=== PATIENT | male | born 1945 | race Caucasian/White ===

== ENCOUNTER 2018-10-20 12:42 | Inpatient (IN) | payer OTHER ==
[2018-10-20 14:05] LABS: Protime INR 1.46
[2018-10-20 14:17] LABS: Absolute Lymphocytes (CBC) 0.3 K/uL (0.7-4.9); Absolute Monocytes 0.9 K/uL (0.1-1.3); Absolute Neutrophil 12.8 K/uL (1.8-8.0); Hematocrit 29.2 % (39.6-49.0); Lymphocytes % 2.2 % (15.3-44.8); MPV 6.8 fL (7.6-11.3); Monocytes % 6.3 % (3.3-12.3); RBC Red Blood Cell Count 3.13 M/uL (4.33-5.43)
[2018-10-20 14:19] LABS: ALT/SGPT 23 U/L (12-78); AST/SGOT 16 U/L (15-37); Albumin 2.2 g/dL (3.4-5.0); Alkaline Phosphatase 111 U/L (45-117); BUN Blood Urea Nitrogen 26 mg/dL (7-18); Bicarbonate 39 mmol/L (21-32); Bilirubin Direct 0.4 mg/dL (0-0.2); Bilirubin Total 0.7 mg/dL (0.2-1.0); Glucose Level 194 mg/dL (74-106); Lipase 30 U/L (73-393); Magnesium 1.8 mg/dL (1.8-2.4); NT PRO-BNP 4451 pg/mL (<450); Potassium 3.5 mmol/L (3.5-5.1); Protein, Total 7.3 g/dL (6.4-8.2); Sodium Level 137 mmol/L (136-145); Troponin (Emerg Dept Use Only) < 0.02 ng/mL (0.0-0.045)
[2018-10-20] MEDS ORDERED: IPRATROPIUM BROM 0.5MG/2.5ML ONE (14:19)
[2018-10-20] MEDS ORDERED: METHYLPREDNISOLONE 125 MG INJ ONE (14:19)
[2018-10-20] MEDS ORDERED: FAMOTIDINE 20 MG/2 ML VIAL IV ONE (14:20)
[2018-10-20] MEDS ORDERED: LEVALBUTEROL 1.25 MG/3 ML NEB ONE (14:20)
[2018-10-20] MEDS ORDERED: NA CHLORIDE 0.9% 1,000 ML ONE (14:20)
[2018-10-20] MEDS ORDERED: PIPER/TAZO/NS 3.375gm 3.375 GM/100 ML BAG ONE (14:20)
--- NOTE | 2018-10-20 14:45 | EKG ---
Test Date: 2018-10-20 Test Time: 13:17:37 Sas Sql Developer: ISABELA MEASUREMENT RESULTS: Intervals: Rate: 107 MD: QRSD: 78 QT: 478 QTc: 638 Mills: P: MD: QRS: 8 T: 250 INTERPRETIVE STATEMENTS: Atrial fibrillation with rapid ventricular response Nonspecific ST and T wave abnormality, probably digitalis effect Abnormal ECG No previous ECG available for comparison Electronically Signed On 10-20-18 14:44:10 CLARK DRIVER by Varinder Romero
--- NOTE | 2018-10-20 14:53 | RAD REPORT ---
EXAM DESCRIPTION: Deanna Single View10/20/2018 2:44 pm CLINICAL HISTORY: Cough COMPARISON: none FINDINGS: Right lobectomy. Right base is hazy. Prominent bilateral reticulonodular lung opacities. The heart is mildly enlarged IMPRESSION: Right lobectomy Prominent bilateral reticulonodular lung opacities may indicate an atypical pneumonia or be chronic Right base is hazy. This may be a normal postsurgical change. Infiltrate or mass has a similar appear ance. CT chest recommended
--- NOTE | 2018-10-20 15:06 | EDPHYS ---
Physician Documentation [facility] Name: Junaid Horvath Age: 73 yrs Sex: Male : 1945 Arrival Date: 10/20/2018 Time: 12:48 Bed 28 Private MD: out of town, doctor ED Physician Jeremiah Haynes HPI: 10/20 13:53 This 73 yrs old Male presents to ER via Wheelchair with complaints of theo Breathing Difficulty. 13:53 The patient has shortness of breath at rest, with light activity. Onset: The theo symptoms/episode began/occurred 2 day(s) ago. Duration: The symptoms are chronic. The patient's shortness of breath is aggravated by coughing, exertion, walking, is alleviated by sitting up, application of supplemental oxygen. Associated signs and symptoms: Pertinent positives: non-productive cough. Severity of symptoms: At their worst the symptoms were mild moderate in the emergency department the symptoms are unchanged. The patient has not experienced similar symptoms in the past. Historical: - Allergies: 13:20 Morphine; ph - PMHx: 13:20 COPD; ph - PSHx: 13:20 R lobectomy; ph - Immunization history:: Adult Immunizations unknown. - Social history:: Smoking status: Patient/guardian denies using tobacco. - Ebola Screening: : No symptoms or risks identified at this time. - Family history:: not pertinent. ROS: 13:53 Constitutional: Negative for fever, chills, and weight loss, Eyes: Negative for injury, theo pain, redness, and discharge, ENT: Negative for injury, pain, and discharge, Neck: Negative for injury, pain, and swelling, Cardiovascular: Negative for chest pain, palpitations, and edema, Abdomen/GI: Negative for abdominal pain, nausea, vomiting, diarrhea, and constipation, Back: Negative for injury and pain, : Negative for injury, bleeding, discharge, and swelling, MS/Extremity: Negative for injury and deformity, Skin: Negative for injury, rash, and discoloration, Neuro: Negative for headache, weakness, numbness, tingling, and seizure, Psych: Negative for depression, anxiety, suicide ideation, homicidal ideation, and hallucinations, Allergy/Immunology: Negative for hives, rash, and allergies, Endocrine: Negative for neck swelling, polydipsia, polyuria, polyphagia, and marked weight changes, Hematologic/Lymphatic: Negative for swollen nodes, abnormal bleeding, and unusual bruising. 13:53 Respiratory: Positive for cough, shortness of breath, wheezing, expiratory. Exam: 13:53 Constitutional: This is a well developed, well nourished patient who is awake, alert, theo and in no acute distress. Head/Face: Normocephalic, atraumatic. Eyes: Pupils equal round and reactive to light, extra-ocular motions intact. Lids and lashes normal. Conjunctiva and sclera are non-icteric and not injected. Cornea within normal limits. Periorbital areas with no swelling, redness, or edema. ENT: Nares patent. No nasal discharge, no septal abnormalities noted. Tympanic membranes are normal and external auditory canals are clear. Oropharynx with no redness, swelling, or masses, exudates, or evidence of obstruction, uvula midline. Mucous membranes moist. Neck: Trachea midline, no thyromegaly or masses palpated, and no cervical lymphadenopathy. Supple, full range of motion without nuchal rigidity, or vertebral point tenderness. No Meningismus. Chest/axilla: Normal chest wall appearance and motion. Nontender with no deformity. No lesions are appreciated. Cardiovascular: Regular rate and rhythm with a normal S1 and S2. No gallops, murmurs, or rubs. Normal PMI, no JVD. No pulse deficits. Abdomen/GI: Soft, non-tender, with normal bowel sounds. No distension or tympany. No guarding or rebound. No evidence of tenderness throughout. Back: No spinal tenderness. No costovertebral tenderness. Full range of motion. Male : Normal genitalia with no discharge or lesions. Skin: Warm, dry with normal turgor. Normal color with no rashes, no lesions, and no evidence of cellulitis. MS/ Extremity: Pulses equal, no cyanosis. Neurovascular intact. Full, normal range of motion. Neuro: Awake and alert, GCS 15, oriented to person, place, time, and situation. Cranial nerves II-XII grossly intact. Motor strength 5/5 in all extremities. Sensory grossly intact. Cerebellar exam normal. Normal gait. Psych: Awake, alert, with orientation to person, place and time. Behavior, mood, and affect are within normal limits. 13:53 Respiratory: mild respiratory distress is noted, Respirations: labored breathing, that is mild, decreased bs right side. Vital Signs: 13:18 BP 149 / 125; Pulse 115; Resp 32; Pulse Ox 95% on 2 lpm NC; Weight 81.65 kg; Height 6 ph ft. 1 in. (185.42 cm); 13:24 Temp 97.8(O); tl3 13:55 BP 128 / 67; Pulse 121; Resp 28; Pulse Ox 98% on 3 lpm NC; tl3 15:12 BP 151 / 67; Pulse 101; Resp 28; Pulse Ox 100% on 2 lpm NC; tl3 17:49 BP 138 / 98; Pulse 88; Resp 26; Pulse Ox 100% ; tl3 13:18 Body Mass Index 23.75 (81.65 kg, 185.42 cm) ph MDM: 13:12 Patient medically screened. [facility] 13:57 Data reviewed: vital signs, nurses notes, lab test result(s), EKG, radiologic studies, [facility] CT scan, plain films. 10/20 13:15 Order name: Basic Metabolic Panel [facility] 10/20 13:15 Order name: CBC with Diff [facility] 10/20 13:15 Order name: LFT's [facility] 10/20 13:15 Order name: Magnesium [facility] 10/20 13:15 Order name: NT PRO-BNP [facility] 10/20 13:15 Order name: PT-INR; Complete Time: 14:19 [facility] 10/20 13:15 Order name: Troponin (emerg Dept Use Only); Complete Time: 14:51 [facility] 10/20 13:15 Order name: Lipase; Complete Time: 14:51 [facility] 10/20 13:15 Order name: Blood Culture Adult (2) [facility] 10/20 13:15 Order name: Procalcitonin; Complete Time: 14:55 [facility] 10/20 13:15 Order name: Urine Culture [facility] 10/20 13:15 Order name: Type And Screen [facility] 10/20 13:16 Order name: Basic Metabolic Panel; Complete Time: 14:51 [facility] 10/20 13:16 Order name: CBC with Automated Diff [facility] 10/20 13:15 Order name: XRAY Chest (1 view); Complete Time: 14:55 [facility] 10/20 13:16 Order name: Liver (Hepatic) Function; Complete Time: 14:51 [facility] 10/20 13:16 Order name: Magnesium; Complete Time: 14:51 [facility] 10/20 13:16 Order name: NT PRO-BNP; Complete Time: 14:51 [facility] 10/20 14:28 Order name: CBC Smear Scan [facility] 10/20 14:58 Order name: CT Chest For PE Angio [facility] 10/20 17:12 Order name: ABO/RH no charge [facility] 10/20 17:53 Order name: Urine Dipstick--Ancillary (enter results) 10/20 18:28 Order name: Urine Dipstick-Ancillary [facility] 10/20 13:15 Order name: EKG; Complete Time: 13:16 [facility] 10/20 13:15 Order name: Cardiac monitoring; Complete Time: 13:24 [facility] 10/20 13:15 Order name: EKG - Nurse/Tech; Complete Time: 13:24 [facility] 10/20 13:15 Order name: IV Saline Lock; Complete Time: 13:54 [facility] 10/20 13:15 Order name: Labs collected and sent; Complete Time: 13:54 [facility] 10/20 13:15 Order name: O2 Per Protocol; Complete Time: 13:54 [facility] 10/20 13:15 Order name: O2 Sat Monitoring; Complete Time: 13:55 [facility] 10/20 13:15 Order name: Urine Dipstick-Ancillary (obtain specimen); Complete Time: 17:44 [facility] Administered Medications: 14:40 Drug: Zosyn 3.375 grams Route: IVPB; Infused Over: 60 mins; Site: right upper arm; tl3 Delivery: Primary tubing; 16:00 Follow up: IV Status: Completed infusion; IV Intake: 100ml tl3 14:40 Drug: Pepcid 20 mg Route: IVP; Site: right upper arm; tl3 17:43 Follow up: Response: No adverse reaction tl3 14:40 Drug: SOLU-Medrol 125 mg Route: IVP; Site: right upper arm; tl3 17:43 Follow up: Response: No adverse reaction tl3 14:40 Drug: Xopenex 3.75 mg Route: Inhalation; tl3 14:40 Drug: AtroVENT Aerosol 0.5 mg Route: Inhalation; tl3 14:42 Drug: NS 0.9% 1000 ml Route: IV; Rate: 125 ml/hr; Site: right upper arm; tl3 17:42 Follow up: IV Status: Infusion continued upon admission; IV Intake: 500ml tl3 17:36 Drug: Zithromax 500 mg Route: IVPB; Infused Over: 1 hrs; Site: right antecubital; tl3 17:36 Drug: Mucomyst - Acetylcysteine 600 mg Route: PO; tl3 17:42 Follow up: Response: No adverse reaction tl3 Disposition: 10/20/18 15:05 Hospitalization ordered by Mariluz Allen for Inpatient Admission. Preliminary diagnosis are Dyspnea, Chronic obstructive pulmonary disease with (acute) exacerbation, Anemia, unspecified, Atrial fibrillation and flutter, Hypoxemia, Pneumonia due to other specified bacteria. - Bed requested for Telemetry/MedSurg (Inpatient). - Status is Inpatient Admission. tl3 - Condition is Fair. - Problem is new. - Symptoms have improved. UTI on Admission? No Signatures: Dispatcher [employer] EDMS Jeremiah Haynes MD MD cha Hall, Patricia RN RN Hilaria Redmond RN RN df Lowrey, Tammy, RN RN tl3 Corrections: (The following items were deleted from the chart) 17:16 15:05 Hospitalization Ordered by Mariluz Allen MD for Inpatient Admission. Preliminary df diagnosis is Dyspnea; Chronic obstructive pulmonary disease with (acute) exacerbation; Anemia, unspecified; Atrial fibrillation and flutter; Hypoxemia; Pneumonia due to other specified bacteria. Bed requested for Telemetry/MedSurg (Inpatient). Status is Inpatient Admission. Condition is Fair. Problem is new. Symptoms have improved. UTI on Admission? No. theo 18:33 17:16 10/20/2018 15:05 Hospitalization Ordered by Mariluz Allen MD for Inpatient tl3 Admission. Preliminary diagnosis is Dyspnea; Chronic obstructive pulmonary disease with (acute) exacerbation; Anemia, unspecified; Atrial fibrillation and flutter; Hypoxemia; Pneumonia due to other specified bacteria. Bed requested for Telemetry/MedSurg (Inpatient). Status is Inpatient Admission. Condition is Fair. Problem is new. Symptoms have improved. UTI on Admission? No. df
--- NOTE | 2018-10-20 15:06 | ER ---
Nurse's Notes [facility] Name: Junaid Horvath Age: 73 yrs Sex: Male : 1945 Arrival Date: 10/20/2018 Time: 12:48 Bed 28 Private MD: out of town, doctor Diagnosis: Dyspnea;Chronic obstructive pulmonary disease with (acute) exacerbation;Anemia, unspecified;Atrial fibrillation and flutter;Hypoxemia;Pneumonia due to other specified bacteria Presentation: 10/20 13:16 Presenting complaint: Patient states: Hx of COPD, feeling more SOB than normal, seen at [facility] last week and sent home w/ Levaquin and steroids, on home o2 \T\ 2 L upon arrival to ED. Transition of care: patient was not received from another setting of care. Onset of symptoms was October 20, 2018. Risk Assessment: Do you want to hurt yourself or someone else? Patient reports no desire to harm self or others. Initial Sepsis Screen: Does the patient meet any 2 criteria? RR > 20 per min. HR > 90 bpm. Yes Does the patient have a suspected source of infection? Yes: Productive cough/pneumonia. Care prior to arrival: None. 13:16 Method Of Arrival: Wheelchair 13:16 Acuity: KARINA 2 ph Triage Assessment: 17:53 General: Appears distressed, uncomfortable. Respiratory: Reports shortness of breath tl3 air hunger Onset: The symptoms/episode began/occurred gradually, the patient has severe shortness of breath. Historical: - Allergies: 13:20 Morphine; ph - PMHx: 13:20 COPD; - PSHx: 13:20 R lobectomy; ph - Immunization history:: Adult Immunizations unknown. - Social history:: Smoking status: Patient/guardian denies using tobacco. - Ebola Screening: : No symptoms or risks identified at this time. - Family history:: not pertinent. Screenin:55 Abuse screen: Denies threats or abuse. Nutritional screening: No deficits noted. tl3 Tuberculosis screening: No symptoms or risk factors identified. Fall Risk None identified. Assessment: 13:55 General: Appears uncomfortable, well groomed, well developed, well nourished, Behavior tl3 is calm, cooperative, appropriate for age. Pain: Denies pain. Neuro: Level of Consciousness is awake, alert, obeys commands, Oriented to person, place, time, situation, Appropriate for age. Cardiovascular: Rhythm is sinus tachycardia. Respiratory: Airway is patent Respiratory effort is even, labored, shallow, weak, Breath sounds are diminished in right upper lobe, right middle lobe, right lower lobe, right posterior upper lobe, right posterior middle lobe and right posterior lower lobe. GI: No signs and/or symptoms were reported involving the gastrointestinal system. : No signs and/or symptoms were reported regarding the genitourinary system. EENT: No signs and/or symptoms were reported regarding the EENT system. Derm: Skin is purple, from left AC down to hand, when IV was removed last week pt bled under his skin. 15:12 Reassessment: No changes from previously documented assessment. Patient and/or family tl3 updated on plan of care and expected duration. Pain level reassessed. Patient is alert, oriented x 3, equal unlabored respirations, skin warm/dry/pink. pt being taken to CT, Neb just finished pt states that he is breathing a little easier Patient states feeling better. 17:49 Reassessment: No changes from previously documented assessment. Patient and/or family tl3 updated on plan of care and expected duration. Pain level reassessed. Patient is alert, oriented x 3, equal unlabored respirations, skin warm/dry/pink. pt ambulated to RR without O2 and became winded, pale placed in wheelchair and returned to room, feeling better now, in NAD. 17:59 Reassessment: awaiting nurse to call back for report, called twice was on hold for a tl3 total of almost 15 minutes, nurse was in pts room and unable to come take report. Will call back ADRIANE. Vital Signs: 13:18 BP 149 / 125; Pulse 115; Resp 32; Pulse Ox 95% on 2 lpm NC; Weight 81.65 kg; Height 6 ph ft. 1 in. (185.42 cm); 13:24 Temp 97.8(O); tl3 13:55 BP 128 / 67; Pulse 121; Resp 28; Pulse Ox 98% on 3 lpm NC; tl3 15:12 BP 151 / 67; Pulse 101; Resp 28; Pulse Ox 100% on 2 lpm NC; tl3 17:49 BP 138 / 98; Pulse 88; Resp 26; Pulse Ox 100% ; tl3 13:18 Body Mass Index 23.75 (81.65 kg, 185.42 cm) ph ED Course: 12:48 Patient arrived in ED. mr 12:48 out of town, doctor is Private Physician. mr 13:12 Jeremiah Haynes MD is Attending Physician. theo 13:16 Maria Del Rosario Shafer, RN is Primary Nurse. tl3 13:18 Triage completed. ph 13:20 Arm band placed on. ph 13:25 EKG done, by satellite dish technician. reviewed by Jeremiah Haynes MD. sm3 13:55 Patient has correct armband on for positive identification. Placed in gown. Bed in low tl3 position. Call light in reach. Side rails up X2. Adult w/ patient. library monitor on. Pulse ox on. NIBP on. Warm blanket given. 13:55 No provider procedures requiring assistance completed. Inserted saline lock: 20 gauge tl3 in right upper arm, using aseptic technique. Blood collected. 14:02 Initial lab(s) drawn, by me, sent to lab. First set of blood cultures drawn by me. tl3 14:41 Second set of blood cultures drawn X-ray(s) taken. tl3 14:43 X-ray completed. Portable x-ray completed in exam room. Patient tolerated procedure jb2 well. 14:45 XRAY Chest (1 view) In Process Unspecified. EDMS 14:59 Mariluz Allen MD is Hospitalizing Provider. theo 15:[address] via stretcher. vm2 15:14 CT completed. Patient tolerated procedure well. Patient moved back from CT. vm2 15:17 CT Chest For PE Angio In Process Unspecified. EDMS 17:44 Basic Metabolic Panel Sent. tl3 17:44 CBC with Diff Sent. tl3 17:44 NT PRO-BNP Sent. tl3 17:44 Magnesium Sent. tl3 17:44 LFT's Sent. tl3 17:49 Patient admitted, IV remains in place. tl3 Administered Medications: 14:40 Drug: Zosyn 3.375 grams Route: IVPB; Infused Over: 60 mins; Site: right upper arm; tl3 Delivery: Primary tubing; 16:00 Follow up: IV Status: Completed infusion; IV Intake: 100ml tl3 14:40 Drug: Pepcid 20 mg Route: IVP; Site: right upper arm; tl3 17:43 Follow up: Response: No adverse reaction tl3 14:40 Drug: SOLU-Medrol 125 mg Route: IVP; Site: right upper arm; tl3 17:43 Follow up: Response: No adverse reaction tl3 14:40 Drug: Xopenex 3.75 mg Route: Inhalation; tl3 14:40 Drug: AtroVENT Aerosol 0.5 mg Route: Inhalation; tl3 14:42 Drug: NS 0.9% 1000 ml Route: IV; Rate: 125 ml/hr; Site: right upper arm; tl3 17:42 Follow up: IV Status: Infusion continued upon admission; IV Intake: 500ml tl3 17:36 Drug: Zithromax 500 mg Route: IVPB; Infused Over: 1 hrs; Site: right antecubital; tl3 17:36 Drug: Mucomyst - Acetylcysteine 600 mg Route: PO; tl3 17:42 Follow up: Response: No adverse reaction tl3 Intake: 16:00 IV: 100ml; Total: 100ml. tl3 17:42 IV: 500ml; Total: 600ml. tl3 Outcome: 15:05 Decision to Hospitalize by Provider. theo 17:53 Condition: stable tl3 17:53 Instructed on the need for admit, Demonstrated understanding of instructions. 17:54 Admitted to Med/surg accompanied by tech, via wheelchair, with oxygen, with chart. tl3 18:33 Patient left the ED. tl3 Signatures: Dispatcher [employer] EDJeremiah Fernando MD MD cha Rivera, Justine mr Zelaya Sagar jb2 Wanda Fitzpatrick RN RN Clotilde Hurtado 2 Maria Del Rosario Shafer RN RN tl3 Brittny Asif sm3 Corrections: (The following items were deleted from the chart) 15:14 13:55 BP 128 / 67; Pulse 121bpm; Resp 20bpm; Pulse Ox 98% 3 lpm Nasal Cannula; tl3 tl3
--- NOTE | 2018-10-20 15:35 | RAD REPORT ---
EXAM DESCRIPTION: CT - Chest For Pe Angio - 10/20/2018 3:17 pm CLINICAL HISTORY: Cough, COPD, shortness of breath COMPARISON: Chest films same date TECHNIQUE: Dynamically enhanced 3 mm thick images of the chest were obtained during administration o f approximately 150mL Isovue 370 IV contrast. Coronal and oblique MIP reconstruction images were gene rated and reviewed. Exam utilizes a protocol to evaluate the pulmonary arterial tree. All CT scans are performed using dose optimization technique as appropriate and may include automated exposure control or mA/KV adjustment according to patient size. FINDINGS: No pulmonary emboli are identified. The aorta as imaged shows no acute or suspicious finding. Cardiomegaly is present. No pericardial eff usion. No significant left upper lobe finding. There is patchy consolidation in the medial base of the left lower lobe. There is complete consolidation and some volume loss of the right lower lobe. Mucus or ot her soft tissue debris fills the right lower lobe bronchus. Similar material fills most of the right middle lobe bronchus. There is partial consolidation of the right middle lobe. Scattered interstitial and alveolar opacities are present in the right upper lobe. Right apical pleural thickening is prese nt. Trace amount of right pleural fluid is present. No pneumothorax. No pleural based mass. Nonspecific mediastinal and hilar lymph nodes are present. Largest retrocaval -pretracheal lymph node is 15 mm. Subcarinal lymphadenopathy is present 2.3 cm in size. No chest wall masses or abnormal axi llary lymphadenopathy. IMPRESSION: No pulmonary emboli identified. Consolidation in some volume loss involving the entire right lower lobe and significant portion of th e right middle lobe. There is consolidation in the medial base of the left lower lobe. Mucus, inflammatory debris or other soft tissue mass effect fills the right lower lobe bronchus and m uch of the right middle lobe bronchus. Nonspecific mediastinal lymphadenopathy. Cardiomegaly. Extensive bilateral pneumonia is the most likely etiology. Underlying malignant process is lesser in likelihood but not excluded. Continued close follow-up is needed.
[2018-10-20 16:01] LABS: Blood Morphology Comment NOTED (NOT SEEN); Platelet Estimate ADEQ; Urine White Blood Cell Casts OK
[2018-10-20 16:02] LABS: Basophilic Stippling 1+; Poikilocytosis SLIGHT
[2018-10-20 16:03] LABS: Stomatocytes 1+
[2018-10-20] MEDS ORDERED: AZITHROMYCIN 500 MG INJ IVPB ONE (17:20)
[2018-10-20] MEDS ORDERED: NA CHLORIDE 0.9% 250 ML ONE (17:21)
[2018-10-20] MEDS ORDERED: ACETYLCYST 6,000 MG/30 ML VIAL ONE (17:21)
[2018-10-20 18:28] LABS: Urine Blood NEGATIVE (NEG); Urine Glucose NEGATIVE (NEG); Urine Protein 1+ (NEG); Urine pH 5.5 (5.0-7.0)
[2018-10-20 19:11] VITALS: BMI 23.0
[2018-10-20] MEDS ORDERED: ONDANSETRON 4 MG/2 ML VIAL IV PRN (19:50)
[2018-10-20] MEDS ORDERED: POTASSIUM CL SA 10 MEQ TAB PO ONE (19:54)
[2018-10-20] MEDS ORDERED: MAGNESIUM SULFATE 1 gm IVPB 1 GM/100 ML BAG IV ONE (19:54)
[2018-10-20] MEDS ORDERED: GLUCAGON 1 MG/VIAL IM PRN ×2 (20:22→20:27)
[2018-10-20] MEDS ORDERED: D50W 25 GM/50 ML SYRINGE IV PRN ×2 (20:22→20:27)
[2018-10-20] MEDS ORDERED: INSULIN -REGULAR HUMAN 50 UNIT/0.5 ML ML IV SCH (21:00)
[2018-10-20] MEDS: INSULIN -REGULAR HUMAN 50 UNIT/0.5 ML ML SQ SCH (22:21)
[2018-10-21 01:19] LABS: Urine Appearance CLEAR; Urine Bilirubin NEGATIVE (NEG); Urine Blood NEGATIVE (NEG); Urine Color YELLOW; Urine Glucose 3+ (NEG); Urine Protein NEGATIVE (NEG); Urine Specific Gravity >=1.030 (1.005-1.030); Urine Urobilinogen 0.2 mg/dL (0.2-1.0)
[2018-10-21 01:26] LABS: Urine Microscopic Reflex NO UMIC
[2018-10-21] MEDS: IPRATROPIUM BROM 0.5MG/2.5ML NEB SCH ×4 (02:00→19:40)
[2018-10-21] MEDS: ALBUTEROL 2.5 MG/3 ML NEB SOL NEB SCH ×4 (02:00→19:40)
[2018-10-21 06:27] LABS: Absolute Lymphocytes (CBC) 0.2 K/uL (0.7-4.9); Absolute Monocytes 0.2 K/uL (0.1-1.3); Absolute Neutrophil 7.3 K/uL (1.8-8.0); Basophils % 0.1 % (0-1.3); Hematocrit 24.8 % (39.6-49.0); Lymphocytes % 2.7 % (15.3-44.8); MPV 6.9 fL (7.6-11.3); Monocytes % 2.8 % (3.3-12.3); RBC Red Blood Cell Count 2.68 M/uL (4.33-5.43)
[2018-10-21 06:31] LABS: Bilirubin Total 0.5 mg/dL (0.2-1.0); Magnesium 2.1 mg/dL (1.8-2.4); Potassium 3.9 mmol/L (3.5-5.1); Protein, Total 6.4 g/dL (6.4-8.2)
[2018-10-21] MEDS ORDERED: FUROSEMIDE 40 MG TABLET PO PRN (06:52)
[2018-10-21] MEDS ORDERED: ALBUMIN HUMAN 25% 100 ML IV ONE (06:55)
[2018-10-21] MEDS ORDERED: FUROSEMIDE 40 MG/4 ML VIAL IV ONE (06:55)
[2018-10-21] MEDS ORDERED: METHYLPREDNISOLONE 125 MG INJ IV ONE (06:58)
[2018-10-21] MEDS ORDERED: GLUCAGON 1 MG/VIAL IM PRN (07:01)
[2018-10-21] MEDS ORDERED: INSULIN 70/30 100 UNITS/ML SQ ONE (07:01)
[2018-10-21] MEDS ORDERED: D50W 25 GM/50 ML SYRINGE IV PRN (07:01)
[2018-10-21 07:53] LABS: Absolute Lymphocytes (CBC) 0.3 K/uL (0.7-4.9); Absolute Monocytes 0.3 K/uL (0.1-1.3); Absolute Neutrophil 9.5 K/uL (1.8-8.0); Lymphocytes % 2.5 % (15.3-44.8); MPV 7.1 fL (7.6-11.3); Monocytes % 3.1 % (3.3-12.3)
[2018-10-21] MEDS ORDERED: POTASSIUM CL SA 10 MEQ TAB PO ONE (08:00)
--- NOTE | 2018-10-21 08:41 | RAD REPORT ---
EXAM DESCRIPTION: RAD - Chest Single View - 10/21/2018 8:32 am CLINICAL HISTORY: pneumonia Chest pain. COMPARISON: Chest Single View dated 10/20/2018; Chest For Pe Angio dated 10/20/2018 FINDINGS: Portable technique limits examination quality. Postsurgical changes of a right lobectomy noted. Little overall change is seen in the appearance of t he lungs with basilar opacities, greater on the right, appearing similar. Heart size is mildly enlarg ed. No displaced fractures. IMPRESSION: Stable chest since 10/20/2018.
[2018-10-21] MEDS: INSULIN -REGULAR HUMAN 50 UNIT/0.5 ML ML SQ SCH ×4 (08:42→22:10)
[2018-10-21] MEDS: LIPASE/PROTEASE/AMYLASE CAP PO SCH ×3 (08:43→16:35)
[2018-10-21] MEDS: FERROUS SULFATE 325 MG TAB PO SCH ×3 (08:44→16:35)
[2018-10-21] MEDS: ALLOPURINOL 100 MG TAB PO SCH (08:44)
[2018-10-21] MEDS: PARoxetine HCl 10 MG TAB PO SCH (08:45)
[2018-10-21] MEDS: METOPROLOL XL 25 MG TAB PO SCH (08:45)
[2018-10-21] MEDS: ARFORMOTEROL TARTRATE 15 MCG/2 ML VIAL.NEB NEB SCH ×2 (08:53→19:40)
--- NOTE | 2018-10-21 08:54 | P.CNS ---
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 [facility] admitted with worsening dyspnea he is a former smoker quit a long time ago chest x-ray very abnormal he has atelectasis or a mass in the right lower lobe patient informs me that he is aware of this been coughing up some productive sputum patient is on Symbicort and Xarelto Allergies morphine Adverse Reaction (Verified 10/20/18 20:02) Itching/Hives/Rash Home Medications: Albuterol Neb [Proventil 0.083% Neb Soln] 3 ml IH Q4H PRN 10/21/18 Albuterol Sulfate [Proair Hfa] 90 mcg IH SEECOM PRN 10/21/18 Allopurinol 1 tab PO DAILY 10/21/18 Budesonide/Formoterol Fumarate [Symbicort 160-4.5 Mcg Inhaler] 2 puff IH BID Ferrous Sulfate [Iron] 1 tab PO TID 10/21/18 Furosemide [Lasix] 40 mg PO DAILY PRN 10/21/18 Insulin Aspart [Novolog] 12 units SQ TID 10/21/18 Insulin Glargine Human [Lantus*] 10 units SQ BEDTIME PRN 10/21/18 Lipase/Protease/Amylase [Kiley Dr 12,000 Units Capsule] 24,000 units PO SEECOM 10/21/18 Metoprolol Succinate [Toprol Xl*] 1 tab PO DAILY 10/21/18 PARoxetine HCl [Paroxetine HCl] 1 tab PO DAILY 10/21/18 Pravastatin Sodium 1 tab PO BEDTIME 10/21/18 Rivaroxaban [Xarelto*] 1 tab PO DAILY 10/21/18 Umeclidinium [place] [Incruse Ellipta] 1 puff IH DAILY 10/21/18 - Past Medical/Surgical History Diabetic: Yes -: HTN -: IDDM -: anemia -: COPD -: afib -: right lower lobectomy -: Gall bladder sx -: colon resection - Family History Mother Medical History: Diabetes - Social History Alcohol use: Yes CD- Drugs: No Caffeine use: Yes Place of Residence: Home Review of Systems General: Weakness Respiratory: Cough, Shortness of Breath Physical Examination Temp Pulse Resp BP Pulse Ox 96.1 F L 89 16 159/69 H 99 10/21/18 04:00 10/21/18 08:45 10/21/18 04:00 10/21/18 08:45 10/21/18 04:00 General: Alert, Mild distress HEENT: Atraumatic Neck: Supple Respiratory: Expiratory wheezes Cardiovascular: No edema, Normal S1 S2 Gastrointestinal: Normal bowel sounds, Soft and benign Musculoskeletal: No clubbing, No swelling Laboratory Data (last 24 hrs) 10/20/18 13:45: PT 17.0 H, INR 1.46 10/20/18 13:45: WBC 14.0 H, Hgb 9.2 L, Hct 29.2 L, Plt Count 274 10/20/18 13:45: Sodium 137, Potassium 3.5, BUN 26 H, Creatinine 1.11, Glucose 194 H, Magnesium 1.8, Total Bilirubin 0.7, AST 16, ALT 23, Alkaline Phosphatase 111, Lipase 30 L - Problems (1) Atelectasis of right lung Current Visit: Yes Status: Acute Plan: Patient is 73 years of age admitted with worsening dyspnea he has a history of COPD compliant with his medications this chest x-rays very abnormal patient appears to have volume loss on the right side with atelectasis of the right lower lobe will have to contact his [facility] pulmonary physician and obtain x-ray reports for a comparison as the patient informs me that he has had this problem before (2) COPD exacerbation Current Visit: Yes Status: Acute Plan: Continue with bronchodilators vital signs are stable I have added Sarah.
[2018-10-21] MEDS ORDERED: HOME MED 1 EA UNK (Umeclidinium Bromide [Incruse Ellipta] 1 PUFF) IH SCH (09:00)
[2018-10-21] MEDS ORDERED: ENOXAPARIN 40 MG/0.4 ML SQ SCH (09:00)
[2018-10-21] MEDS ORDERED: HOME MED 1 EA UNK (Budesonide/Formoterol Fumarate [Symbicort 160-4.5 Mcg Inhaler] 2 PUFF) IH SCH (09:00)
--- NOTE | 2018-10-21 09:09 | P.HP ---
Certification for Inpatient Patient admitted to: Inpatient With expected LOS: >2 Midnights Patient will require the following post-hospital care: None Practitioner: I am a practitioner with admitting privileges, knowledge of patient current condition, hospital course, and medical plan of care. Services: Services provided to patient in accordance with Admission requirements found in Title 42 Section 412.3 of the Code of Federal Regulations Patient History Date of Service: 10/20/18 Reason for admission: Shortness of breath History of Present Illness: Patient is a 73-year-old gentleman who came into the hospital with shortness of breath. In the emergency room patient had multiple diagnostic studies which revealed significant atelectasis in additional findings as mentioned below: There is patchy consolidation in the medial base of the left lower lobe. There is complete consolidation and some volume loss of the right lower lobe. There is mucus or other soft tissue debris that fills the right lower lobe bronchus. Similar material fills most of the right middle lobe bronchus. There is partial consolidation of the right middle lobe. Scattered interstitial and alveolar opacities are present in the right upper lobe. Right apical pleural thickening is present. Trace amount of right pleural fluid is present. No pneumothorax. No pleural based mass. Patient is not able to give me much history. He is actually going to [place] for most of his care. He did have some leukocytosis and anemia. Will need to monitor his labs closely. Monitor his respiratory status as well. Patient was admitted to the hospital for further evaluation. Allergies morphine Adverse Reaction (Verified 10/20/18 20:02) Itching/Hives/Rash Home Medications: Albuterol Neb [Proventil 0.083% Neb Soln] 3 ml IH Q4H PRN 10/21/18 Albuterol Sulfate [Proair Hfa] 90 mcg IH SEECOM PRN 10/21/18 Allopurinol 1 tab PO DAILY 10/21/18 Budesonide/Formoterol Fumarate [Symbicort 160-4.5 Mcg Inhaler] 2 puff IH BID Ferrous Sulfate [Iron] 1 tab PO TID 10/21/18 Furosemide [Lasix] 40 mg PO DAILY PRN 10/21/18 Insulin Aspart [Novolog] 12 units SQ TID 10/21/18 Insulin Glargine Human [Lantus*] 10 units SQ BEDTIME PRN 10/21/18 Lipase/Protease/Amylase [[place] Dr 12,000 Units Capsule] 24,000 units PO SEECOM 10/21/18 Metoprolol Succinate [Toprol Xl*] 1 tab PO DAILY 10/21/18 PARoxetine HCl [Paroxetine HCl] 1 tab PO DAILY 10/21/18 Pravastatin Sodium 1 tab PO BEDTIME 10/21/18 Rivaroxaban [Xarelto*] 1 tab PO DAILY 10/21/18 Umeclidinium [place] [Incruse Ellipta] 1 puff IH DAILY 10/21/18 - Past Medical/Surgical History Has patient received pneumonia vaccine in the past: Yes Diabetic: Yes -: HTN -: IDDM -: anemia -: COPD -: Atrial fibrillation -: Right lower lobectomy -: Cholecystectomy -: colon resection - Family History Mother Medical History: Diabetes - Social History Counseled patient to stop smoking for: less than 10 minutes Smoking therapy provided: No Alcohol use: Yes CD- Drugs: No Caffeine use: Yes Place of Residence: Home Review of Systems 10-point ROS is otherwise unremarkable Physical Examination - Vital Signs Temperature: 96.1 F Blood Pressure: 159/69 Pulse: 89 Respirations: 16 Pulse Ox (%): 99 - Physical Exam General: Alert, In no apparent distress, Oriented x3 HEENT: Atraumatic, PERRLA, Mucous membr. moist/pink, EOMI, Sclerae nonicteric Neck: Supple, 2+ carotid pulse no bruit, No LAD, Without JVD or thyroid abnormality Respiratory: Diminished, Expiratory wheezes, Rhonchi/gurgles Cardiovascular: Regular rate/rhythm, Normal S1 S2, Systolic murmur Gastrointestinal: Normal bowel sounds, Soft and benign, Non-distended, No tenderness Musculoskeletal: No clubbing, No swelling, No tenderness Integumentary: No rashes Neurological: Normal speech, Normal tone, Sensation intact, Cranial nerves 3-12 intact, Abnormal gait, Abnormal strength, Abnormal affect Lymphatics: No axilla or inguinal lymphadenopathy - Studies Laboratory Data (last 24 hrs) 10/20/18 13:45: PT 17.0 H, INR 1.46 10/20/18 13:45: WBC 14.0 H, Hgb 9.2 L, Hct 29.2 L, Plt Count 274 10/20/18 13:45: Sodium 137, Potassium 3.5, BUN 26 H, Creatinine 1.11, Glucose 194 H, Magnesium 1.8, Total Bilirubin 0.7, AST 16, ALT 23, Alkaline Phosphatase 111, Lipase 30 L Assessment & Plan - Problems (Diagnosis) (1) Lung consolidation due to pneumococcal pneumonia Current Visit: Yes Status: Acute (2) Atelectasis of right lung Current Visit: Yes Status: Acute (3) Hyperglycemia Current Visit: Yes Status: Acute (4) COPD exacerbation Current Visit: Yes Status: Acute (5) Atrial fibrillation Current Visit: Yes Status: Acute (6) Hypertension Current Visit: Yes Status: Acute Qualifiers: Hypertension type: essential hypertension Qualified Code(s): I10 - Essential (primary) hypertension (7) Anemia due to acute blood loss Current Visit: Yes Status: Acute - Plan 1. Continue with IV antibiotics 2. Awaiting sputum and blood culture 3. Repeat chest x-ray 4. CT scan of the chest reviewed. 5. Pulmonary consultation 6. Continue with nebs as needed; IV steroids as well; 7. O2 per protocol 8. Continue with gentle hydration; 9. Repeat labs including CBC and renal function in a.m. 10. GI and DVT prophylaxis Discharge Plan: Home Plan to discharge in: Greater than 2 days - Advance Directives Does patient have a Living Will: Yes Does patient have a Durable POA for Healthcare: Yes - Code Status/Comfort Care Code Status Assessed: Yes Code Status: Full Code Critical Care: No Time Spent Managing PTS Care (In Minutes): 50
[2018-10-21] MEDS: RIVAROXABAN 10 MG TABLET PO SCH (11:50)
--- NOTE | 2018-10-21 13:41 | P.PN ---
Subjective Date of Service: 10/21/18 Chief Complaint: Shortness of breath Subjective: No C/O voiced, Improving Patient seen and examined at bedside. at bedside. Chart reviewed and case discussed with nursing staff. Review of Systems 10-point ROS is otherwise unremarkable Physical Examination - Vital Signs Temperature: 98.2 F Blood Pressure: 154/62 Pulse: 93 Respirations: 24 Pulse Ox (%): 96 - Physical Exam General: Alert, In no apparent distress HEENT: Atraumatic, PERRLA, EOMI Neck: Supple, JVD not distended Respiratory: Expiratory wheezes Cardiovascular: Regular rate/rhythm, Normal S1 S2 Gastrointestinal: Normal bowel sounds, No tenderness Musculoskeletal: No tenderness Integumentary: No rashes Neurological: Normal speech, Normal tone, Normal affect Lymphatics: No axilla or inguinal lymphadenopathy - Studies Laboratory Data (last 24 hrs) 10/20/18 13:45: PT 17.0 H, INR 1.46 10/20/18 13:45: WBC 14.0 H, Hgb 9.2 L, Hct 29.2 L, Plt Count 274 10/20/18 13:45: Sodium 137, Potassium 3.5, BUN 26 H, Creatinine 1.11, Glucose 194 H, Magnesium 1.8, Total Bilirubin 0.7, AST 16, ALT 23, Alkaline Phosphatase 111, Lipase 30 L Assessment And Plan - Plan Lung consolidation due to pneumococcal pneumonia Atelectasis of right lung Continue with IV antibiotics Awaiting sputum and blood culture CT scan of the chest reviewed. Records from previous hospitalizations reviewed , placed in chart. Pulmonary consultation, recommendations appreciated Diabetes mellitus, type 2 Accu-Cheks Mild sliding scale insulin Will restart home medications as tolerated COPD exacerbation Continue with nebs as needed; IV steroids as well Oxygen per protocol Atrial fibrillation Or restart home medications Hypertension Stable, restart home medications as tolerated Anemia due to acute blood loss H&H stable Will continue to monitor. No evidence of active bleeding at this time. DVT prophylaxis: Xarelto GI prophylaxis: Not needed Diet: 1800 diabetic Disposition: Continue to monitor on the floor. Pending further workup and symptomatic improvement.
[2018-10-21] MEDS: ATORVASTATIN 10 MG TAB PO SCH (22:02)
[2018-10-21] MEDS: INSULIN GLARGINE 100 UNITS/ML SQ PRN (23:00)
[2018-10-22] MEDS: IPRATROPIUM BROM 0.5MG/2.5ML NEB SCH ×4 (01:45→19:50)
[2018-10-22] MEDS: ALBUTEROL 2.5 MG/3 ML NEB SOL NEB SCH ×4 (01:45→19:50)
[2018-10-22 05:56] LABS: Absolute Lymphocytes (CBC) 0.4 K/uL (0.7-4.9); Absolute Monocytes 0.8 K/uL (0.1-1.3); Absolute Neutrophil 13.3 K/uL (1.8-8.0); Basophils % 0.1 % (0-1.3); Hematocrit 24.6 % (39.6-49.0); Lymphocytes % 2.8 % (15.3-44.8); MPV 6.7 fL (7.6-11.3); Monocytes % 5.6 % (3.3-12.3); RBC Red Blood Cell Count 2.67 M/uL (4.33-5.43)
[2018-10-22 06:10] LABS: Albumin 2.3 g/dL (3.4-5.0); Bilirubin Total 0.3 mg/dL (0.2-1.0); Phosphorus 3.3 mg/dL (2.5-4.9); Potassium 4.1 mmol/L (3.5-5.1); Protein, Total 6.7 g/dL (6.4-8.2)
[2018-10-22] MEDS: LIPASE/PROTEASE/AMYLASE CAP PO SCH ×3 (07:55→16:50)
[2018-10-22] MEDS: RIVAROXABAN 10 MG TABLET PO SCH (07:56)
[2018-10-22] MEDS: ALLOPURINOL 100 MG TAB PO SCH (07:56)
[2018-10-22] MEDS: PARoxetine HCl 10 MG TAB PO SCH (07:56)
[2018-10-22] MEDS: FERROUS SULFATE 325 MG TAB PO SCH ×3 (07:56→17:14)
[2018-10-22] MEDS: METOPROLOL XL 25 MG TAB PO SCH (07:57)
[2018-10-22] MEDS ORDERED: CEFTRIAXONE 1 GM/NS 50 ML 1 GM/50 ML BAG IV SCH (08:00)
[2018-10-22] MEDS: CEFTRIAXONE/SWI 1gm 1 GM/10 ML SYR IV SCH (08:24)
[2018-10-22] MEDS: ARFORMOTEROL TARTRATE 15 MCG/2 ML VIAL.NEB NEB SCH ×2 (08:35→19:50)
--- NOTE | 2018-10-22 08:44 | EKG ---
Test Date: 2018-10-22 Test Time: 03:25:09 Retail Salesman: RT MEASUREMENT RESULTS: Intervals: Rate: 77 NC: 80 QRSD: 76 QT: 384 QTc: 434 [place]: P: -63 NC: 80 QRS: 4 T: -59 INTERPRETIVE STATEMENTS: Unusual P axis and short NC, probable junctional tachycardia with blocked premature atrial complexes Nonspecific T wave abnormality Abnormal ECG Compared to ECG 10/20/2018 13:17:37 T-wave abnormality now present Atrial fibrillation no longer present ST (T wave) deviation no longer present Electronically Signed On 10-22-18 08:43:04 DESSERT CUP MACHINE FEEDER by Varinder Romero
--- NOTE | 2018-10-22 09:02 | RAD REPORT ---
EXAM DESCRIPTION: Deanna Single View10/22/2018 8:46 am CLINICAL HISTORY: Chest pain COMPARISON: October 21 FINDINGS: Right lung volume loss unchanged. No significant change in bilateral reticulonodular pulmonary opacities. This may indicate an atypical pneumonia. Postsurgical changes of a right lobectomy again demonstrated. The heart remains enlarged
[2018-10-22] MEDS: INSULIN -REGULAR HUMAN 50 UNIT/0.5 ML ML SQ SCH ×4 (09:20→22:02)
--- NOTE | 2018-10-22 12:15 | P.PN ---
Subjective Date of Service: 10/22/18 Chief Complaint: Shortness of breath No new change maybe feels slightly better nebulizers seems to be helping more present at bedside Review of Systems General: Weakness Respiratory: Cough, Shortness of Breath Physical Examination - Vital Signs Temperature: 97.9 F Blood Pressure: 146/67 Pulse: 106 Respirations: 20 Pulse Ox (%): 99 - Physical Exam General: Alert, In no apparent distress Neck: Supple Respiratory: Clear to auscultation bilaterally, Diminished (Diminished at the right base) Cardiovascular: No edema, Normal pulses Assessment & Plan - Problems (Diagnosis) (1) Atelectasis of right lung Current Visit: Yes Status: Acute Plan: Reviewed with the patient's and review records from my [facility] he has had an extensive workup done including bronchoscopy to evaluate for obstruction records do not indicate a malignancy patient has had thoracentesis before including a vats procedure 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
[2018-10-22] MEDS: ROFLUMILAST 500 MCG TABLET PO SCH (12:57)
--- NOTE | 2018-10-22 13:38 | P.PN ---
Subjective Date of Service: 10/22/18 Chief Complaint: Shortness of breath Patient seen and examined at bedside. at bedside. Chart reviewed and case discussed with nursing staff. Per , he seems more weaker. States that his muscles are weak, generalized. Breathing m[place]cl[place]on, and patient states that taking it is unchanged from yesterday. Review of Systems 10-point ROS is otherwise unremarkable Physical Examination - Vital Signs Temperature: 97.9 F Blood Pressure: 146/67 Pulse: 106 Respirations: 20 Pulse Ox (%): 99 - Physical Exam General: Alert, In no apparent distress, Oriented x3 HEENT: Atraumatic, PERRLA, EOMI Neck: Supple, JVD not distended Respiratory: Diminished, Expiratory wheezes Cardiovascular: Regular rate/rhythm, Normal S1 S2 Gastrointestinal: Normal bowel sounds, No tenderness Musculoskeletal: No tenderness Integumentary: No rashes Neurological: Normal speech, Normal tone, Normal affect Lymphatics: No axilla or inguinal lymphadenopathy Assessment And Plan - Plan Lung consolidation due to pneumococcal pneumonia Atelectasis of right lung Continue with IV antibiotics Awaiting sputum and blood culture CT scan of the chest reviewed. Records from previous hospitalizations reviewed , placed in chart. Pulmonary consultation, recommendations appreciated Diabetes mellitus, type 2 Accu-Cheks Mild sliding scale insulin Will restart home medications as tolerated COPD exacerbation Continue with nebs as needed; IV steroids as well Oxygen per protocol Atrial fibrillation Or restart home medications Hypertension Stable, restart home medications as tolerated Anemia due to acute blood loss H&H stable Will continue to monitor. No evidence of active bleeding at this time. DVT prophylaxis: Xarelto GI prophylaxis: Not needed Diet: 1800 diabetic Disposition: Continue to monitor on the floor. Pending symptomatic improvement.
[2018-10-22 15:14] LABS: Arterial Blood Carboxyhemoglob 1.7 % (0-1.5); Blood Gas Oxyhemoglobin 92.6 % (94-97)
[2018-10-22] MEDS: ATORVASTATIN 10 MG TAB PO SCH (22:01)
[2018-10-22] MEDS: INSULIN GLARGINE 100 UNITS/ML SQ PRN (22:03)
[2018-10-23] MEDS: IPRATROPIUM BROM 0.5MG/2.5ML NEB SCH ×4 (01:30→20:00)
[2018-10-23] MEDS: ALBUTEROL 2.5 MG/3 ML NEB SOL NEB SCH ×2 (01:30→08:30)
[2018-10-23 05:36] LABS: Absolute Lymphocytes (CBC) 0.8 K/uL (0.7-4.9); Absolute Neutrophil 9.8 K/uL (1.8-8.0); Eosinophils % 0.1 % (0-4.4); Hematocrit 26.9 % (39.6-49.0); Lymphocytes % 6.7 % (15.3-44.8); MPV 6.4 fL (7.6-11.3); Monocytes % 8.3 % (3.3-12.3); RBC Red Blood Cell Count 2.94 M/uL (4.33-5.43)
[2018-10-23 06:01] LABS: Albumin 2.5 g/dL (3.4-5.0); Bilirubin Total 0.4 mg/dL (0.2-1.0); Potassium 4.1 mmol/L (3.5-5.1)
--- NOTE | 2018-10-23 07:27 | RAD REPORT ---
EXAM DESCRIPTION: RAD - Chest Single View - 10/23/2018 7:03 am CLINICAL HISTORY: Pneumonia COMPARISON: Portable chest October 22 and October 21; CT chest October 20 TECHNIQUE: AP portable chest image was obtained 0655 hours . FINDINGS: Lung volumes are stable. Extensive right base pleural and parenchymal opacification have n ot changed. Left lung field interstitial opacification slightly worse than prior day imaging. Right u pper lobe lung markings also slightly increased. Right heart border remains obscured. Heart and vascu lature are normal. No measurable pleural effusion and no pneumothorax. No acute bony abnormality seen . No acute aortic findings suspected. IMPRESSION: Slight worsening of interstitial opacification in the left lung field and upper right fanta ng field. This may be developing edema from failure or volume overload. Right base pleural and parenchymal opacification are not clearly different. There has been no improve ment.
[2018-10-23] MEDS: INSULIN -REGULAR HUMAN 50 UNIT/0.5 ML ML SQ SCH ×4 (07:30→20:54)
[2018-10-23] MEDS: LIPASE/PROTEASE/AMYLASE CAP PO SCH ×3 (07:50→17:07)
[2018-10-23] MEDS: PARoxetine HCl 10 MG TAB PO SCH (08:22)
[2018-10-23] MEDS: CEFTRIAXONE/SWI 1gm 1 GM/10 ML SYR IV SCH (08:22)
[2018-10-23] MEDS: FERROUS SULFATE 325 MG TAB PO SCH ×3 (08:23→17:07)
[2018-10-23] MEDS: ROFLUMILAST 500 MCG TABLET PO SCH (08:23)
[2018-10-23] MEDS: RIVAROXABAN 10 MG TABLET PO SCH (08:23)
[2018-10-23] MEDS: METOPROLOL XL 25 MG TAB PO SCH (08:23)
[2018-10-23] MEDS: ALLOPURINOL 100 MG TAB PO SCH (08:24)
[2018-10-23] MEDS: ARFORMOTEROL TARTRATE 15 MCG/2 ML VIAL.NEB NEB SCH ×2 (08:30→20:00)
[2018-10-23] MEDS ORDERED: ALBUTEROL 2.5 MG/3 ML NEB SOL NEB PRN (12:47)
--- NOTE | 2018-10-23 12:48 | P.PN ---
Subjective Date of Service: 10/23/18 Chief Complaint: Shortness of breath Patient seen and examined at bedside. at bedside. Chart reviewed and case discussed with nursing staff and Dr. Garcia. Per , he seems more weaker. States that his muscles are weak, generalized. Overnight, patient more tachypneic with increased work of breathing. Improved at the time of my exam this am. Review of Systems 10-point ROS is otherwise unremarkable Physical Examination - Vital Signs Temperature: 97.2 F Blood Pressure: 127/58 Pulse: 103 Respirations: 20 Pulse Ox (%): 92 - Physical Exam General: Alert, Mild distress, Moderate distress, Other (Ill appearing) HEENT: Atraumatic, PERRLA, EOMI Neck: Supple, JVD not distended Respiratory: Crackles/rales Cardiovascular: Regular rate/rhythm, Normal S1 S2 Gastrointestinal: Normal bowel sounds, No tenderness Musculoskeletal: No tenderness Integumentary: No rashes Neurological: Normal speech, Normal tone, Normal affect Lymphatics: No axilla or inguinal lymphadenopathy Assessment And Plan - Current Problems (Diagnosis) (1) Anemia due to acute blood loss Current Visit: Yes Status: Acute (2) Atelectasis of right lung Current Visit: Yes Status: Acute (3) Atrial fibrillation Current Visit: Yes Status: Acute (4) COPD exacerbation Current Visit: Yes Status: Acute (5) Hyperglycemia Current Visit: Yes Status: Acute (6) Hypertension Current Visit: Yes Status: Acute Qualifiers: Hypertension type: essential hypertension Qualified Code(s): I10 - Essential (primary) hypertension (7) Lung consolidation due to pneumococcal pneumonia Current Visit: Yes Status: Acute (8) Malnutrition Current Visit: Yes Status: Acute Qualifiers: Malnutrition type: protein-calorie malnutrition Protein-calorie malnutrition severity: moderate Qualified Code(s): E44.0 - Moderate protein- calorie malnutrition - Plan Lung consolidation due to pneumococcal pneumonia Atelectasis of right lung Continue with IV antibiotics Awaiting sputum and blood culture. NGTD CT scan of the chest reviewed. Records from previous hospitalizations reviewed , placed in chart. Pulmonary consultation, recommendations appreciated Continue Nebs, brovana Oxygen as needed. (pt on home oxygen) Diabetes mellitus, type 2 Accu-Cheks Mild sliding scale insulin Continue home medications. COPD exacerbation Continue with nebs as needed; IV steroids as well Oxygen per protocol Atrial fibrillation Continue home medications Hypertension Stable, restart home medications as tolerated Anemia due to acute blood loss H&H stable Will continue to monitor. No evidence of active bleeding at this time. Malnutrition Albumin 2.1 DVT prophylaxis: Xarelto GI prophylaxis: Not needed Diet: 1800 diabetic Disposition: Continue to monitor on the floor. Pending symptomatic improvement.
--- NOTE | 2018-10-23 12:50 | P.PN ---
Subjective Date of Service: 10/23/18 Chief Complaint: Respiratory failure Patient has chronic hypoxic hypercapnic respiratory failure he is very weak his ankle therapy started Review of Systems General: Weakness Respiratory: Shortness of Breath Physical Examination - Vital Signs Temperature: 97.2 F Blood Pressure: 127/58 Pulse: 103 Respirations: 20 Pulse Ox (%): 92 - Physical Exam General: Alert, Oriented x3, Mild distress Respiratory: Clear to auscultation bilaterally, Diminished Cardiovascular: No edema, Normal pulses Assessment & Plan - Problems (Diagnosis) (1) Atelectasis of right lung Current Visit: Yes Status: Acute Plan: Patient appears to have a trapped lung workup done at [facility] (2) COPD exacerbation Current Visit: Yes Status: Acute Plan: Patient has severe COPD based on records from [facility] he has hypoxic hypercapnic and may benefit from a noninvasive ventilator no evidence of sepsis Dc antibiotics (3) Respiratory failure Current Visit: Yes Status: Acute Plan: Patient is 73 years of age has terminal COPD also hypoxic hypercapnic stable respiratory failure and may benefit from a noninvasive ventilator to prevent hospital readmissions he is on maximum bronchodilator therapy Qualifiers: Chronicity: chronic
[2018-10-23] MEDS: ATORVASTATIN 10 MG TAB PO SCH (20:53)
[2018-10-24] MEDS: IPRATROPIUM BROM 0.5MG/2.5ML NEB SCH ×4 (02:00→20:00)
[2018-10-24] MEDS: INSULIN -REGULAR HUMAN 50 UNIT/0.5 ML ML SQ SCH ×4 (07:30→21:13)
[2018-10-24] MEDS: ARFORMOTEROL TARTRATE 15 MCG/2 ML VIAL.NEB NEB SCH ×2 (07:35→20:00)
--- NOTE | 2018-10-24 09:51 | P.PN ---
Subjective Date of Service: 10/24/18 Chief Complaint: Respiratory failure Patient is somewhat better overnight oximetry did not show significant desaturation BiPAP not started yet undergoing bedside physical therapy Review of Systems General: Weakness Respiratory: Shortness of Breath Physical Examination - Vital Signs Temperature: 97.4 F Blood Pressure: 126/62 Pulse: 98 Respirations: 20 Pulse Ox (%): 96 - Physical Exam General: Alert, In no apparent distress, Oriented x3 HEENT: Atraumatic Neck: Supple Respiratory: Diminished Assessment & Plan - Problems (Diagnosis) (1) Atelectasis of right lung Current Visit: Yes Status: Acute Plan: Patient appears to have a trapped lung workup done at [facility] (2) COPD exacerbation Current Visit: Yes Status: Acute Plan: Patient has severe COPD based on records from [facility] he has hypoxic hypercapnic and may benefit from a noninvasive ventilator no evidence of sepsis Dc antibiotics (3) Respiratory failure Current Visit: Yes Status: Acute Plan: Patient did not show any evidence of overnight desaturation continuous pulse oximetry was recorded trial of BiPAP he may qualify for noninvasive ventilation he has chronic stable respiratory failure and will benefit from invasive and to prevent hospitalization Qualifiers: Chronicity: chronic
[2018-10-24] MEDS: ROFLUMILAST 500 MCG TABLET PO SCH (10:01)
[2018-10-24] MEDS: FERROUS SULFATE 325 MG TAB PO SCH ×3 (10:01→17:34)
[2018-10-24] MEDS: RIVAROXABAN 10 MG TABLET PO SCH (10:01)
[2018-10-24] MEDS: PARoxetine HCl 10 MG TAB PO SCH (10:02)
[2018-10-24] MEDS: LIPASE/PROTEASE/AMYLASE CAP PO SCH ×3 (10:02→17:34)
[2018-10-24] MEDS: ALLOPURINOL 100 MG TAB PO SCH (10:02)
[2018-10-24] MEDS: METOPROLOL XL 25 MG TAB PO SCH (10:02)
--- NOTE | 2018-10-24 13:16 | P.PN ---
Subjective Date of Service: 10/24/18 Chief Complaint: Respiratory failure Subjective: No C/O voiced Patient seen and examined at bedside. at bedside. Chart reviewed and case discussed with nursing staff and Dr. Garcia. Patient undergoing evaluation for nonivassive ventilation qualification for home. Doing well this am, comfortable on bi-pap Review of Systems 10-point ROS is otherwise unremarkable Physical Examination - Vital Signs Temperature: 97.5 F Blood Pressure: 128/60 Pulse: 100 Respirations: 20 Pulse Ox (%): 95 - Physical Exam General: Alert, In no apparent distress HEENT: Atraumatic, PERRLA, EOMI Neck: Supple, JVD not distended Respiratory: Diminished, Other (on bipap) Cardiovascular: Regular rate/rhythm, Normal S1 S2 Gastrointestinal: Normal bowel sounds, No tenderness Musculoskeletal: No tenderness Integumentary: No rashes Neurological: Normal speech, Normal tone, Normal affect Lymphatics: No axilla or inguinal lymphadenopathy Assessment And Plan - Current Problems (Diagnosis) (1) Anemia due to acute blood loss Current Visit: Yes Status: Acute (2) Atelectasis of right lung Current Visit: Yes Status: Acute (3) Atrial fibrillation Current Visit: Yes Status: Acute (4) COPD exacerbation Current Visit: Yes Status: Acute (5) Hyperglycemia Current Visit: Yes Status: Acute (6) Hypertension Current Visit: Yes Status: Acute Qualifiers: Hypertension type: essential hypertension Qualified Code(s): I10 - Essential (primary) hypertension (7) Lung consolidation due to pneumococcal pneumonia Current Visit: Yes Status: Acute (8) Malnutrition Current Visit: Yes Status: Acute Qualifiers: Malnutrition type: protein-calorie malnutrition Protein-calorie malnutrition severity: moderate Qualified Code(s): E44.0 - Moderate protein- calorie malnutrition - Plan Lung consolidation due to pneumococcal pneumonia Atelectasis of right lung Discontinue IV antibiotics Sputum cultures negative. CT scan of the chest reviewed. Records from previous hospitalizations reviewed , placed in chart. Pulmonary consultation, recommendations appreciated. He is pending evaluation for home non invasive ventilation Continue Nebs, brovana Oxygen as needed. (pt on home oxygen) Diabetes mellitus, type 2 Accu-Cheks Mild sliding scale insulin Continue home medications. COPD exacerbation Continue with nebs as needed; IV steroids as well Oxygen per protocol Atrial fibrillation Continue home medications Hypertension Stable, restart home medications as tolerated Anemia due to acute blood loss H&H stable Will continue to monitor. No evidence of active bleeding at this time. Malnutrition Albumin 2.1 DVT prophylaxis: Xarelto GI prophylaxis: Not needed Diet: 1800 diabetic Disposition: Continue to monitor on the floor. Pending noninvassive ventilation set up.
[2018-10-24] MEDS: ATORVASTATIN 10 MG TAB PO SCH (21:13)
[2018-10-25] MEDS: IPRATROPIUM BROM 0.5MG/2.5ML NEB SCH ×4 (02:00→20:00)
[2018-10-25] MEDS: INSULIN -REGULAR HUMAN 50 UNIT/0.5 ML ML SQ SCH ×4 (07:30→20:59)
[2018-10-25] MEDS: ARFORMOTEROL TARTRATE 15 MCG/2 ML VIAL.NEB NEB SCH ×2 (07:54→20:00)
[2018-10-25] MEDS: LIPASE/PROTEASE/AMYLASE CAP PO SCH ×3 (09:17→16:42)
[2018-10-25] MEDS: PARoxetine HCl 10 MG TAB PO SCH (09:18)
[2018-10-25] MEDS: ALLOPURINOL 100 MG TAB PO SCH (09:18)
[2018-10-25] MEDS: FERROUS SULFATE 325 MG TAB PO SCH ×3 (09:18→16:42)
[2018-10-25] MEDS: ROFLUMILAST 500 MCG TABLET PO SCH (09:18)
[2018-10-25] MEDS: METOPROLOL XL 25 MG TAB PO SCH (09:19)
[2018-10-25] MEDS: RIVAROXABAN 10 MG TABLET PO SCH (09:19)
[2018-10-25 11:27] LABS: Absolute Lymphocytes (CBC) 0.6 K/uL (0.7-4.9); Absolute Monocytes 0.9 K/uL (0.1-1.3); Absolute Neutrophil 10.1 K/uL (1.8-8.0); Basophils % 0.2 % (0-1.3); Eosinophils % 0.2 % (0-4.4); Hematocrit 23.1 % (39.6-49.0); Monocytes % 7.7 % (3.3-12.3); RBC Red Blood Cell Count 2.51 M/uL (4.33-5.43)
--- NOTE | 2018-10-25 11:29 | P.PN ---
Subjective Date of Service: 10/25/18 Chief Complaint: Respiratory failure Subjective: No C/O voiced, Improving Patient seen and examined at bedside. at bedside. Chart reviewed and case discussed with nursing staff and Dr. Garcia. Patient undergoing evaluation for nonivassive ventilation qualification for home. Doing well this am, comfortable on bi-pap Review of Systems 10-point ROS is otherwise unremarkable Physical Examination - Vital Signs Temperature: 98.9 F Blood Pressure: 126/60 Pulse: 97 Respirations: 20 Pulse Ox (%): 95 - Physical Exam General: Alert, In no apparent distress, Oriented x3, Cachectic, Other (ILL- APPEARING) HEENT: Atraumatic, PERRLA, EOMI Neck: Supple, JVD not distended Respiratory: Diminished, Crackles/rales Cardiovascular: Regular rate/rhythm, Normal S1 S2 Gastrointestinal: Normal bowel sounds, No tenderness Musculoskeletal: No tenderness Integumentary: No rashes Neurological: Normal speech, Normal tone, Normal affect Lymphatics: No axilla or inguinal lymphadenopathy Assessment And Plan - Current Problems (Diagnosis) (1) Anemia due to acute blood loss Current Visit: Yes Status: Acute (2) Atelectasis of right lung Current Visit: Yes Status: Acute (3) Atrial fibrillation Current Visit: Yes Status: Acute (4) COPD exacerbation Current Visit: Yes Status: Acute (5) Hyperglycemia Current Visit: Yes Status: Acute (6) Hypertension Current Visit: Yes Status: Acute Qualifiers: Hypertension type: essential hypertension Qualified Code(s): I10 - Essential (primary) hypertension (7) Lung consolidation due to pneumococcal pneumonia Current Visit: Yes Status: Acute (8) Malnutrition Current Visit: Yes Status: Acute Qualifiers: Malnutrition type: protein-calorie malnutrition Protein-calorie malnutrition severity: moderate Qualified Code(s): E44.0 - Moderate protein- calorie malnutrition - Plan Lung consolidation due to pneumococcal pneumonia Atelectasis of right lung Discontinue IV antibiotics - Sputum cultures negative. CT scan of the chest reviewed. Records from previous hospitalizations reviewed , placed in chart. Pulmonary consultation, recommendations appreciated. He is pending evaluation for home non invasive ventilation Continue Nebs, brovana Oxygen as needed. (pt on home oxygen) Diabetes mellitus, type 2 Accu-Cheks Mild sliding scale insulin Continue home medications. COPD exacerbation Continue with nebs as needed; IV steroids as well Oxygen per protocol Atrial fibrillation Continue home medications Hypertension Stable, restart home medications as tolerated Anemia due to acute blood loss H&H stable Will continue to monitor. No evidence of active bleeding at this time. Malnutrition Albumin 2.1 DVT prophylaxis: Xarelto GI prophylaxis: Not needed Diet: 1800 diabetic Disposition: Continue to monitor on the floor. Pending noninvasive ventilation set up.
[2018-10-25 11:50] LABS: Potassium 3.5 mmol/L (3.5-5.1)
[2018-10-25] MEDS ORDERED: POTASSIUM CL SA 10 MEQ TAB PO ONE (12:15)
[2018-10-25 13:21] LABS: Blood Morphology Comment NOT SEEN (NOT SEEN); Platelet Estimate ADEQ
[2018-10-25 17:58] LABS: Hematocrit 21.7 % (39.6-49.0)
[2018-10-25] MEDS: ATORVASTATIN 10 MG TAB PO SCH (20:48)
[2018-10-25] MEDS ORDERED: NA CHLORIDE 0.9% 250 ML ONE (23:54)
[2018-10-26] MEDS: IPRATROPIUM BROM 0.5MG/2.5ML NEB SCH ×3 (02:00→13:57)
[2018-10-26] MEDS: INSULIN -REGULAR HUMAN 50 UNIT/0.5 ML ML SQ SCH ×3 (07:30→16:30)
--- NOTE | 2018-10-26 08:13 | ECHO ---
HEIGHT: 6 ft 1 in WEIGHT: 174 lb 6 oz DATE OF STUDY: 10/23/[address]: Dinh Garcia MD 2-DIMENSIONAL: YES M.MODE: YES DOPPLER: YES COLOR FLOW: YES TDS: NO PORTABLE: NO DEFINITY: NO BUBBLE STUDY: NO DIAGNOSIS: HISTORY OF PULMONARY HYPERTENSION CARDIAC HISTORY: CATHERIZATION: NO SURGERY: NO PROSTHETIC VALVE: NO PACEMAKER: NO MEASUREMENTS (cm) DIASTOLIC (NORMALS) SYSTOLIC (NORMALS) IVSd 1.3 (0.6-1.2) LA Diam (1.9-4.0) LVEF 78% LVIDd 3.3 (3.5-5.7) LVIDs 1.8 (2.0-3.5) %FS 46% LVPWd 1.2 (0.6-1.2) Ao Diam 4.1 (2.0-3.7) 2 DIMENSIONAL ASSESSMENT: RIGHT ATRIUM: NORMAL LEFT ATRIUM: NORMAL RIGHT VENTRICLE: NORMAL LEFT VENTRICLE: NORMAL TRICUSPID VALVE: NORMAL MITRAL VALVE: NORMAL PULMONIC VALVE: NORMAL AORTIC VALVE: NORMAL PERICARDIAL EFFUSION: NONE AORTIC ROOT: NORMAL LEFT VENTRICULAR WALL MOTION: NORMAL DOPPLER/COLOR FLOW: SEVERE PULMONARY HYPERTENSION. RIGHT VENTRICULAR SYSTOLIC PRESSURE 67 mmHg. COMMENTS: TECHNICALLY DIFFICULT STUDY. NORMAL LEFT VENTRICULAR SIZE AND FUNCTION. MILD TRICUSPID REGURGITATION. SEVERE PULMONARY HYPERTENSION. RIGHT VENTRICULAR SYSTOLIC PRESSURE 67 mmHg. TECHNOLOGIST: Joselyn HENDRICKS
[2018-10-26] MEDS: ARFORMOTEROL TARTRATE 15 MCG/2 ML VIAL.NEB NEB SCH (08:53)
[2018-10-26 09:00] LABS: Absolute Lymphocytes (CBC) 0.4 K/uL (0.7-4.9); Absolute Neutrophil 12.2 K/uL (1.8-8.0); Basophils % 0.2 % (0-1.3); Eosinophils % 0.1 % (0-4.4); Hematocrit 29.7 % (39.6-49.0); Lymphocytes % 3.1 % (15.3-44.8); MPV 7.2 fL (7.6-11.3); Monocytes % 7.4 % (3.3-12.3); RBC Red Blood Cell Count 3.27 M/uL (4.33-5.43)
[2018-10-26 09:01] LABS: BUN Blood Urea Nitrogen 14 mg/dL (7-18); Bicarbonate 39 mmol/L (21-32); Glucose Level 142 mg/dL (74-106); Potassium 4.1 mmol/L (3.5-5.1); Sodium Level 138 mmol/L (136-145)
[2018-10-26 09:23] LABS: Thyroid Stimulating Hormone 3.88 uIU/mL (0.360-3.740)
[2018-10-26] MEDS: FERROUS SULFATE 325 MG TAB PO SCH ×3 (10:25→17:13)
[2018-10-26] MEDS: ALLOPURINOL 100 MG TAB PO SCH (10:26)
[2018-10-26] MEDS: PARoxetine HCl 10 MG TAB PO SCH (10:26)
[2018-10-26] MEDS: METOPROLOL XL 25 MG TAB PO SCH (10:27)
[2018-10-26] MEDS: RIVAROXABAN 10 MG TABLET PO SCH (10:27)
[2018-10-26] MEDS: ROFLUMILAST 500 MCG TABLET PO SCH (10:27)
[2018-10-26] MEDS: LIPASE/PROTEASE/AMYLASE CAP PO SCH ×3 (10:27→17:13)
--- NOTE | 2018-10-26 12:29 | P.PN ---
Subjective Date of Service: 10/26/18 Chief Complaint: Respiratory failure No change still short of breath debilitated at bedside already BiPAP Review of Systems General: Weakness Respiratory: Shortness of Breath Physical Examination - Vital Signs Temperature: 97.8 F Blood Pressure: 126/79 Pulse: 106 Respirations: 28 Pulse Ox (%): 97 - Physical Exam General: Alert, Oriented x3, Cooperative Respiratory: Clear to auscultation bilaterally, Diminished - Studies Microbiology Data (last 24 hrs): 10/20/18 14:20 Blood - Blood Aerobic Blood Culture - Final No growth in 5 days. 10/20/18 14:20 Blood - Blood Anaerobic Blood Culture - Final No growth in 5 days. 10/20/18 13:45 Blood - Blood Aerobic Blood Culture - Final No growth in 5 days. 10/20/18 13:45 Blood - Blood Anaerobic Blood Culture - Final No growth in 5 days. Assessment & Plan - Problems (Diagnosis) (1) Atelectasis of right lung Current Visit: Yes Status: Acute Plan: Patient appears to have a trapped lung workup done at [facility] (2) COPD exacerbation Current Visit: Yes Status: Acute Plan: Patient has severe COPD based on records from [facility] he has hypoxic hypercapnic and may benefit from a noninvasive ventilator no evidence of sepsis Dc antibiotics (3) Respiratory failure Current Visit: Yes Status: Acute Plan: Patient's overall prognosis is very poor he has terminal COPD discussed with the options include the rehab for patient to goal home with home health agree with DNR request for a noninvasive ventilator is submitted otherwise patient is stable Qualifiers: Chronicity: chronic
[2018-10-26 14:12] LABS: Platelet Estimate ADEQ; Toxic Granulation PRESENT; Urine White Blood Cell Casts OK
[2018-10-26 14:13] LABS: Anisocytosis 2+; Blood Morphology Comment NOTED (NOT SEEN); Polychromasia SLIGHT
--- NOTE | 2018-10-26 15:03 | P.DS ---
Admission Date: 10/20/18 Discharge Date: 10/26/18 Primary Care Provider: unknown Disposition: HOSPICE-HOME Discharge Condition: GOOD Reason for Admission: Respiratory failure Consultations: Pulmonary-Dr. Garcia Procedures: ECHO: EF 78% LEFT VENTRICULAR WALL MOTION: NORMAL DOPPLER/COLOR FLOW: SEVERE PULMONARY HYPERTENSION. RIGHT VENTRICULAR SYSTOLIC PRESSURE 67 mmHg. COMMENTS: TECHNICALLY DIFFICULT STUDY. NORMAL LEFT VENTRICULAR SIZE AND FUNCTION. MILD TRICUSPID REGURGITATION. SEVERE PULMONARY HYPERTENSION. RIGHT VENTRICULAR SYSTOLIC PRESSURE [address] scan: COMPARISON: Chest films same date TECHNIQUE: Dynamically enhanced 3 mm thick images of the chest were obtained during administration of approximately 150mL Isovue 370 IV contrast. Coronal and oblique MIP reconstruction images were generated and reviewed. Exam utilizes a protocol to evaluate the pulmonary arterial tree. All CT scans are performed using dose optimization technique as appropriate and may include automated exposure control or mA/KV adjustment according to patient size. FINDINGS: No pulmonary emboli are identified. The aorta as imaged shows no acute or suspicious finding. Cardiomegaly is present. No pericardial effusion. No significant left upper lobe finding. There is patchy consolidation in the medial base of the left lower lobe. There is complete consolidation and some volume loss of the right lower lobe. Mucus or other soft tissue debris fills the right lower lobe bronchus. Similar material fills most of the right middle lobe bronchus. There is partial consolidation of the right middle lobe. Scattered interstitial and alveolar opacities are present in the right upper lobe. Right apical pleural thickening is present. Trace amount of right pleural fluid is present. No pneumothorax. No pleural based mass. Nonspecific mediastinal and hilar lymph nodes are present. Largest retrocaval - pretracheal lymph node is 15 mm. Subcarinal lymphadenopathy is present 2.3 cm in size. No chest wall masses or abnormal axillary lymphadenopathy. IMPRESSION: No pulmonary emboli identified. Consolidation in some volume loss involving the entire right lower lobe and significant portion of the right middle lobe. There is consolidation in the medial base of the left lower lobe. Mucus, inflammatory debris or other soft tissue mass effect fills the right lower lobe bronchus and much of the right middle lobe bronchus. Nonspecific mediastinal lymphadenopathy. Cardiomegaly. Extensive bilateral pneumonia is the most likely etiology. Underlying malignant process is lesser in likelihood but not excluded. Medical Problem List: Acute on chronic respiratory failure secondary to End stage COPD exacerbation complicated with Right sided pneumonia with right sided atelectasis and consolidation of right lung with noted Severe Pulmonary HTN HTN Atrial fibrillation on chronic anticoagulation Hyperlipidemia Depression DM Type 2 on insulin therapy Iron Def. Anemia requiring transfusion Moderate Malnutrition Brief History of Present Illness: 73 yo CM presented to the ER with SOB. He has extensive history of end stage COPD. He was found to have right sided pneumonia complicated with COPD exacerbation. He was admitted for treatment. Hospital Course: Patient presented with acute on chronic respiratory failure secondary to end- stage COPD exacerbation complicated with right-sided pneumonia with noted right- sided atelectasis and consolidation of the right lung. Patient also found to have severe pulmonary hypertension. Patient was treated with IV antibiotic therapy. Patient seen and evaluated by pulmonology. The patient did not significantly improve. Pulmonology recommended noninvasive ventilator at discharge. As his condition did not improve, Advanced directives address in detail. Patient wishes to be do not resuscitate. Plan of care was also addressed with the patient and family. Options included long-term acute care facility placement, home health or hospice. The patient and family chose hospice as they understand his condition is terminal. At discharge patient will go home with hospice. Patient will be provided noninvasive ventilator/ BiPAP at home. Oxygen to maintain sats above 90%. Patient will continue with prednisone 10 mg 1 pill twice daily for 5 days then 1 pill once daily for 5 days. Patient will continue with medication including Brovana 1 unit dose twice daily, albuterol/Atrovent 1 unit dose 3 times a day as needed for shortness of breath, Incruse 1 puff daily and Daliresp 1 pill daily. Further adjustment can be done by hospice. Patient with hypertension. Patient may continue with metoprolol 25 mg daily. Further adjustment can be done by hospice. Patient with atrial fibrillation on chronic anti coagulation therapy. At discharge he will continue with metoprolol 25 mg daily and Xarelto 10 mg daily. Patient with hyperlipidemia. Patient may continue with Lipitor 10 mg daily. Patient with diabetes type 2. He is insulin dependent. Patient may continue with Lantus 10 units subcu every bedtime. Patient also takes Humalog as needed. Further adjustment can be done by hospice. Patient with depression. Patient will continue with Paxil 40 mg daily. Patient with iron deficiency anemia. Patient received 2 units of blood. Hemoglobin stable. Patient may continue with iron supplementation 3 times a day. Vital Signs/Physical Exam: Temp Pulse Resp BP Pulse Ox 97.8 F 106 H 28 H 126/79 97 10/26/18 12:29 10/26/18 12:29 10/26/18 12:29 10/26/18 12:29 10/26/18 12:29 General: Alert, Cooperative, Mild distress HEENT: Atraumatic Neck: Supple Respiratory: Crackles/rales (bilateral), Expiratory wheezes, Inspiratory wheezes Cardiovascular: Normal pulses, Regular rate/rhythm Gastrointestinal: Normal bowel sounds, Soft and benign, Non-distended Musculoskeletal: No tenderness, No warmth Integumentary: Other (muscle wasting noted throughout) Neurological: Normal speech, Other (poor strength throughout) Laboratory Data at Discharge: WBC 13.7 K/uL (4.3-10.9) H D 10/26/18 08:30 Hgb 9.7 g/dL (13.6-17.9) L D 10/26/18 08:30 Hct 29.7 % (39.6-49.0) L D 10/26/18 08:30 Plt Count 285 K/uL (152-406) 10/26/18 08:30 PT 17.0 SECONDS (9.5-12.5) H 10/20/18 13:45 INR 1.46 10/20/18 13:45 Sodium 138 mmol/L (136-145) 10/26/18 08:30 Potassium 4.1 mmol/L (3.5-5.1) 10/26/18 08:30 BUN 14 mg/dL (7-18) 10/26/18 08:30 Creatinine 0.77 mg/dL (0.55-1.3) 10/26/18 08:30 Glucose 142 mg/dL (74-106) H 10/26/18 08:30 Phosphorus 3.3 mg/dL (2.5-4.9) 10/22/18 05:22 Magnesium 2.1 mg/dL (1.8-2.4) 10/21/18 05:44 Total Bilirubin 0.4 mg/dL (0.2-1.0) 10/23/18 05:04 AST 21 U/L (15-37) 10/23/18 05:04 ALT 27 U/L (12-78) 10/23/18 05:04 Alkaline Phosphatase 111 U/L (45-117) 10/23/18 05:04 Lipase 30 U/L (73393) L 10/20/18 13:45 Home Medications: Albuterol Neb [Proventil 0.083% Neb Soln] 3 ml IH Q4H PRN 10/21/18 Albuterol Sulfate [Proair Hfa] 90 mcg IH SEECOM PRN 10/21/18 Allopurinol 1 tab PO DAILY 10/21/18 Ferrous Sulfate [Iron] 1 tab PO TID 10/21/18 Furosemide [Lasix*] 40 mg PO DAILY PRN 10/21/18 Insulin Aspart [Novolog] 12 units SQ TID 10/21/18 Insulin Glargine Human [Lantus*] 10 units SQ BEDTIME PRN 10/21/18 Lipase/Protease/Amylase [Creon Dr 12,000 Units Capsule] 24,000 units PO SEECOM 10/21/18 Metoprolol Succinate [Toprol Xl*] 1 tab PO DAILY 10/21/18 PARoxetine HCl [Paroxetine HCl] 1 tab PO DAILY 10/21/18 Pravastatin Sodium 1 tab PO BEDTIME 10/21/18 Rivaroxaban [Xarelto*] 1 tab PO DAILY 10/21/18 Umeclidinium [place]ura [Incruse Ellipta] 1 puff IH DAILY 10/21/18 Albuterol Neb [Proventil 0.083% Neb Soln] 2.5 mg NEB TID PRN #90 amp 10/26/18 Arformoterol Tartrate [Brovana] 15 mcg NEB BIDRESP #60 vial.neb 10/26/18 Ipratropium Neb [Atrovent*] 0.5 mg NEB TID PRN #90 amp 10/26/18 Roflumilast [Daliresp*] 500 mcg PO DAILY #30 tablet 10/26/18 predniSONE [Deltasone*] 10 mg PO SEECOM #15 tab 10/26/18 New Medications: Albuterol Neb [Proventil 0.083% Neb Soln] 2.5 mg NEB TID PRN #90 amp PRN Reason: Shortness Of Breath Arformoterol Tartrate [Brovana] 15 mcg NEB BIDRESP #60 vial.neb Ipratropium Neb [Atrovent*] 0.5 mg NEB TID PRN #90 amp PRN Reason: Shortness Of Breath predniSONE [Deltasone*] 10 mg PO SEECOM #15 tab Roflumilast [Daliresp*] 500 mcg PO DAILY #30 tablet Patient Discharge Instructions: 1. Patient will go home with hospice. 2. Patient presented with acute on chronic respiratory failure secondary to end- stage COPD exacerbation complicated with right-sided pneumonia with noted right- sided atelectasis and consolidation of the right lung. Patient also found to have severe pulmonary hypertension. Patient was treated with IV antibiotic therapy. Patient seen and evaluated by pulmonology. The patient did not significantly improve. Pulmonology recommended noninvasive ventilator at discharge. As his condition did not improve, Advanced directives address in detail. Patient wishes to be do not resuscitate. Plan of care was also addressed with the patient and family. Options included long-term acute care facility placement, home health or hospice. The patient and family chose hospice as they understand his condition is terminal. At discharge patient will go home with hospice. Patient will be provided noninvasive ventilator/ BiPAP at home. Oxygen to maintain sats above 90%. Patient will continue with prednisone 10 mg 1 pill twice daily for 5 days then 1 pill once daily for 5 days. Patient will continue with medication including Brovana 1 unit dose twice daily, albuterol/Atrovent 1 unit dose 3 times a day as needed for shortness of breath, Incruse 1 puff daily and Daliresp 1 pill daily. Further adjustment can be done by hospice. 3. Patient with hypertension. Patient may continue with metoprolol 25 mg daily. Further adjustment can be done by hospice. 4. Patient with atrial fibrillation on chronic anti coagulation therapy. At discharge he will continue with metoprolol 25 mg daily and Xarelto 10 mg daily. 5. Patient with hyperlipidemia. Patient may continue with Lipitor 10 mg daily. 6. Patient with diabetes type 2. He is insulin dependent. Patient may continue with Lantus 10 units subcu every bedtime. Patient also takes Humalog as needed. Further adjustment can be done by hospice. 7. Patient with depression. Patient will continue with Paxil 40 mg daily. 8. Patient with iron deficiency anemia. Patient received 2 units of blood. Hemoglobin stable. Patient may continue with iron supplementation 3 times a day. Diet: AHA Activity: Fall precautions Time spent managing pt's care (in minutes): 55
[2018-10-26 16:05] VITALS: O2SAT 96
[2018-10-26 16:43] VITALS: BP 121/60; TEMP 97.1
== END 2018-10-26 18:26 | disposition hospice, home (50) | DRG 190 ==
LOC: ER 12:42 → ERHOLD 15:57 → 2ND 18:24
PROVIDERS: ADMIT Family Medicine; ATTEND Family Medicine
PROC: 5A09457 Assistance with Respiratory Ventilation, 24-96 Consecutive Hours, Continuous Positive Airway Pressure (ICD-10-PCS; 2018-10-24)
PROC: 30233N1 Transfusion of Nonautologous Red Blood Cells into Peripheral Vein, Percutaneous Approach (ICD-10-PCS; principal; 2018-10-25)
DX: J44.0 Chronic obstructive pulmonary disease with (acute) lower respiratory infection (principal); J13 Pneumonia due to Streptococcus pneumoniae; J98.11 Atelectasis; E44.0 Moderate protein-calorie malnutrition; J96.12 Chronic respiratory failure with hypercapnia; D62 Acute posthemorrhagic anemia; J44.1 Chronic obstructive pulmonary disease with (acute) exacerbation; I27.20 Pulmonary hypertension, unspecified; I48.91 Unspecified atrial fibrillation; Z79.01 Long term (current) use of anticoagulants; E78.5 Hyperlipidemia, unspecified; F32.9 Major depressive disorder, single episode, unspecified; Z79.4 Long term (current) use of insulin; D50.9 Iron deficiency anemia, unspecified; Z66 Do not resuscitate; Z51.5 Encounter for palliative care; I10 Essential (primary) hypertension; Z88.5 Allergy status to narcotic agent; Z68.23 Body mass index [BMI] 23.0-23.9, adult; Z87.891 Personal history of nicotine dependence; E11.65 Type 2 diabetes mellitus with hyperglycemia
CPT/HCPCS: 36415; 36430; 71045; 71275; 80048; 80053; 80076; 80320; 81003; 82805; 82962; 83605; 83690; 83735; 83880; 84100; 84145; 84439; 84443; 84484; 85014; 85018; 85025; 85610; 86850; 86900; 86901; 87040; 87070; 87086; 87088; 87205; 93005; 93306; 94640; 94660; 94760; 97116; 97163; 97166; 97530; 99285; J0456; J0696; J1650; J1940; J2543; J2930; J3475; J7030; J7605; P9016; P9047; Q9967